=== PATIENT | male | born 1985 | race African-American/Black ===

== ENCOUNTER 2023-05-07 02:24 | Emergency (ER) | payer SELFPAY ==
--- NOTE | ~2023-05-07 | XR_ITS ---
XR chest 2V DATE: 05/07/2023 03:22 INDICATION: Chest pain, heartburn, nausea TECHNIQUE: PA and lateral views COMPARISON: None FINDINGS: Heart size is within normal limits. Probable moderate hiatal hernia. No hilar or mediastina l enlargement. No pulmonary infiltrate or consolidation, pleural effusion or pulmonary vascular congestion or pneumo thorax is detected. IMPRESSION: No active cardiac pulmonary disease Probable moderate hiatal hernia Reviewed, dictated and finalized at location A. [facility]
--- NOTE | 2023-05-07 02:25 | ECG_ITS ---
Measurements Intervals [place] Rate: 62 P: 34 IA: 216 QRS: 17 QRSD: 93 T: 0 QT: 364 QTc: 372 Interpretive Statements SINUS RHYTHM WITH FIRST DEGREE AV BLOCK NO PREVIOUS ECG AVAILABLE FOR COMPARISON Electronically Signed On 05-07-2023 13:49:41 [employer] by Rubi Garcia M.D.
[2023-05-07 02:36] VITALS: BP 157/110; PULSE 68; RESP 19; TEMP 36.6; O2SAT 100
[2023-05-07 02:45] LABS: Basophils Percent Auto 0.2 % (0.2-1.2); Eosinophils Absolute Auto 0.1 K/mm3 (0-0.3); Eosinophils Percent Auto 0.9 % (0-4.4); Hemoglobin 14.2 g/dL (14.0-18.0); Immature Granulocyte Absolute 0.03 K/mm3 (0.00-0.031); Immature Granulocyte Percent A 0.3 % (0-0.5); Lymphocytes Absolute Auto 4.65 K/mm3 (0.9-3.2); Lymphocytes Percent Auto 52.6 % (18.3-44.2); Mean Corpuscular Hemoglobin 30.2 pg (26-34); Mean Corpuscular Volume 91.5 fl (80-100); Mean Platelet Volume 8.6 fl (7.4-10.4); Monocytes Absolute Auto 0.6 K/mm3 (0.1-0.6); Monocytes Percent Auto 6.7 % (2.6-8.5); Neutrophils Absolute Auto 3.5 K/mm3 (1.3-6.7); Neutrophils Percent Auto 39.3 % (45.5-73.1); Platelet Count Result 265 k/mm3 (150-375); Red Cell Distribution Width 12.8 % (11.5-14.5); White Blood Count 8.8 K/mm3 (4.5-10.0)
[2023-05-07 02:55] LABS: Alanine Aminotransferase 25 U/L (6-50); Albumin Level 4.1 g/dL (3.5-5.1); Alkaline Phosphatase 80 U/L (38-126); Anion Gap 8 mmol/L (8-16); Aspartate Amino Transferase 21 U/L (17-59); Bilirubin,Total 0.5 mg/dL (0.2-1.3); Blood Urea Nitrogen 9 mg/dL (9-20); Calcium 8.9 mg/dL (8.4-10.2); Carbon Dioxide 25 mmol/L (22-30); Chloride 106 mmol/L (98-107); Estimated CRCL calculation 122 ml/min; Estimated Glomerular Filt Rate > 60; Glucose 146 mg/dL (65-110); Lipase 89 U/L (23-300); Potassium 3.6 mmol/L (3.4-5.0); Prothrombin Time 13.3 Seconds (11.1-14.7); Sodium 139 mmol/L (137-145)
[2023-05-07 02:56] LABS: Partial Thromboplastin Time 28.9 SECONDS (22.3-36.8)
[2023-05-07 03:07] LABS: Troponin I < 0.012 ng/mL (0.000-0.034)
[2023-05-07] MEDS: ASPIRIN 81 MG CHEWABLE TABLET 324 MG PO (04:18)
--- NOTE | 2023-05-07 04:49 | ED.CHESTPAIN ---
HPI - Chest Pain General Chief Complaint: Chest Pain Stated Complaint: Heartburn, cp Time Seen by Provider: 05/07/23 04:48 Source: patient History of Present Illness HPI narrative: 38 yo with CP and reported heartburn. Described as a pressure, non-radiating. No shortness of breath. He got nauseated and diaphoretic. Duration 3-4 hours. This has happened before and he usually takes antacids which helps. Possible history hypertension. He reports vomiting during the chest xray which has left him feeling much better. This was the only episode of emesis.Non bloody. He has not otherwise had a cough. No family history of cardiac issues <65 years old. 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 Related Data Allergies Allergy/AdvReac Type Severity Reaction Status Date / Time No Known Allergies Allergy Verified 05/07/23 02:24 [facility] Past Medical History Medical History Hypertension Family History Family History Grandparent Acute myocardial infarction, Onset Age: 70 Exam Narrative: GENERAL: Well-appearing, well-nourished, and in no acute distress. HEAD: Normocephalic, atraumatic. EYES: Non injected, non icteric ENT: Nares clear, no rhinorrhea or epistaxis. NECK: Supple. CHEST: Clear to auscultation. No respiratory distress. HEART: Regular rate and rhythm. Normal S1 and S2. ABDOMEN: Soft, nondistended. EXTREMITIES: Normal range of motion. No edema. SKIN: Warm, dry, no rash. NEURO: No focal deficits. Alert and oriented x3. PSYCH: Normal mood and affect. Course Vital Signs Vital signs: Vital Signs Temperature 97.8 F 05/07/23 02:36 Pulse Rate 68 05/07/23 02:36 Respiratory Rate 19 05/07/23 02:36 Blood Pressure 157/110 H 05/07/23 02:36 Pulse Oximetry 100 05/07/23 02:36 Oxygen Delivery Room Air 05/07/23 02:36 Temperature 97.8 F 05/07/23 02:36 Pulse Rate 76 05/07/23 07:05 Respiratory Rate 16 05/07/23 07:05 Blood Pressure 143/92 H 05/07/23 07:05 Pulse Oximetry 99 05/07/23 07:05 Oxygen Delivery Room Air 05/07/23 02:36 MDM - Chest Pain MDM Narrative Medical decision making narrative: 38 yo presents with chest pain that feels like heartburn. This has happened previously and usually responds to antacids. Does not follow with cardiology/GI. Had felt nauseated but he vomiting during CXR and now all symptoms have resolved. Negative troponin x2. Discharged in stable condition. Differential Diagnosis Differential diagnosis: Likely pneumothorax, stable angina, unstable angina pectoris, atypical chest pain, st elevation myocardial infarction, chest pain and biliary colic Lab Data Attestation: I reviewed the patient's lab results. Lab results narrative: CBC unremarkable. Mild hyperglycemia. 05/07/23 02:39 05/07/23 02:39 Labs: Lab Results 05/07/23 05/07/23 Range/Units 02:39 06:20 WBC 8.8 (4.5-10.0) K/mm3 RBC 4.70 (4.6-6.20) M/mm3 Hgb 14.2 (14.0-18.0) g/dL Hct 43.0 (42.0-52.0) % MCV 91.5 (80-100) fl MCH 30.2 (26-34) pg MCHC 33.0 (32-36) g/dl RDW 12.8 (11.5-14.5) % Plt Count 265 (150-375) k/mm3 MPV 8.6 (7.4-10.4) fl Immature Gran % (Auto) 0.3 (0-0.5) % Neut % (Auto) 39.3 L (45.5-73.1) % Lymph % (Auto) 52.6 H (18.3-44.2) % [place] % (Auto) 6.7 (2.6-8.5) % Eos % (Auto) 0.9 (0-4.4) % Baso % (Auto) 0.2 (0.2-1.2) % Lymph # (Auto) 4.65 H (0.9-3.2) K/mm3 [place] # (Auto) 0.6 (0.1-0.6) K/mm3 Eos # (Auto) 0.1 (0-0.3) K/mm3 Baso # (Auto) 0.0 (0.0-0.1) K/mm3 Abs Immat Gran (auto) 0.03 (0.00-0.031) K/mm3 Absolute Neuts (auto) 3.5 (1.3-6.7) K/mm3 Absolute Nucleated RBC 0.0 (0.0-0.012) K/mm3 Nucleated RBC % 0.0 (0.0-0.2) % PT 13.3 (11.1-14.7) Seconds INR 1.0 APTT 28.9 (22.3-36.8) SECONDS Sodium 139 (137-145) mmol/L
[2023-05-07 06:21] VITALS: BP 145/76; PULSE 75; RESP 16; O2SAT 99
--- NOTE | 2023-05-07 06:30 | ECG_ITS ---
Measurements Intervals [place] Rate: 72 P: 27 [place]: 199 QRS: 25 QRSD: 89 T: 2 QT: 348 QTc: 381 Interpretive Statements SINUS RHYTHM COMPARED TO ECG 05/07/2023 02:29:17 NO SIGNIFICANT CHANGES Electronically Signed On 05-07-2023 13:52:13 [employer] by Rubi Garcia M.D.
[2023-05-07 06:46] LABS: Troponin I < 0.012 ng/mL (0.000-0.034)
[2023-05-07 07:05] VITALS: BP 143/92; PULSE 76; RESP 16; O2SAT 99
== END 2023-05-07 07:06 | disposition home or self-care (01) ==
PROVIDERS: Emergency Provider Student in an Organized Health Care Education/Training Program
DX: R07.9 Chest pain, unspecified (principal); I10 Essential (primary) hypertension
CPT/HCPCS: 36415; 71046; 80053; 83690; 84484; 85025; 85610; 85730; 93005; 99284; A9270